=== PATIENT | male | born 1985 | race Caucasian/White ===

== ENCOUNTER 2017-12-22 17:45 | Emergency (ER) | payer SELFPAY ==
[~2017-12-22] VITALS: Ht 175.3 cm; Wt 90.9 kg
[~2017-12-22 17:45] MED LIST: FLOMAX 0.40.4 MG/CAP PO; MOTRIN 800800 MG/TAB PO; NO HOME MEDICATIONS; PERCOCET 325 MG1 TA2 PO
[2017-12-22 20:20] VITALS: BP 168/83; PULSE 55; TEMP 98.5
[2017-12-22] MEDS ORDERED: AMOXICILLIN 8751 TAB PO (20:25)
== END 2017-12-22 21:01 | disposition home or self-care (01) ==
LOC: COL.ER 17:45
DX: K04.7 Periapical abscess without sinus (principal); F17.210 Nicotine dependence, cigarettes, uncomplicated